=== PATIENT | male | born 1995 | race Caucasian/White ===

== ENCOUNTER 2020-10-19 16:36 | Emergency (ER) | payer SELFPAY ==
[~2020-10-19] VITALS: Ht 188 cm; Wt 95.4 kg
[~2020-10-19 16:36] MED LIST: LEVE500T53 PO
--- NOTE | 2020-10-19 16:49 | NUR ---
PT AMBULATED TO ROOM FROM TRIAGE. PT STATED THAT LAST WEEK HE FELT PAIN IN THE BACK OF HIS MOUTH ON THE RIGHT SIDE. PT HAD GIRLFRIEND TAKE A PICTURE AND NOTICED A SORE. PT STATED THAT PAIN HAS NOT GONE AWAY. PT DENIES ANY FEVER, N/V/D OR ANY OTHER SYMPTOMS.
--- NOTE | 2020-10-19 17:35 | NUR ---
PT RESTING COMFORTABLY IN [facility]. CALL LIGHT WITHIN REACH.
[2020-10-19 17:59] LABS: ANION GAP 7 mmol/L (5-15); CALCIUM 8.7 mg/dL (8.5-10.1); CHLORIDE 110 mmol/L (98-107); CREATININE 0.84 mg/dL (0.7-1.3)
[2020-10-19] MEDS ORDERED: KETOROLAC 30 MG/1 ML IM ONE (18:00)
[2020-10-19 18:02] LABS: BASOPHILS % (AUTO) 1 % (0-1); EOSINOPHILS % (AUTO) 2 % (1-7); LYMPHOCYTES % (AUTO) 22 % (22-44); MEAN CORPUSCULAR HEMOGLOBIN 29.8 pg (27.5-34.5); MEAN CORPUSCULAR HGB CONC 33.7 g/dL (33.2-36.2); MEAN PLATELET VOLUME 7.8 fL (7.4-10.4); MONOCYTES % (AUTO) 10 % (2-9); NEUTROPHILS % (AUTO) 66 % (42-75); PLATELET COUNT 328 x10^3/uL (130-400); RED BLOOD COUNT 4.78 x10^6/uL (4.38-5.82); RED CELL DISTRIBUTION WIDTH 13.3 % (9.4-14.8)
[2020-10-19] MEDS ORDERED: KETOROLAC 30 MG/1 ML ONE (18:03)
[2020-10-19 18:08] LABS: MD NO
--- NOTE | 2020-10-19 18:38 | NUR ---
PT TO CT
[2020-10-19] MEDS ORDERED: OMNIPAQUE 350 MG/ML, 100ML BOTTLE ONE (18:52)
--- NOTE | 2020-10-19 19:00 | NUR ---
PT BACK FROM CT
[2020-10-19] MEDS ORDERED: ONDANSETRON ODT 4 MG ONE ×3 (20:02→20:45)
--- NOTE | 2020-10-19 20:13 | NUR ---
DISCHARGE INSTRUCTIONS REVIEWED WITH PT. ALL QUESTIONS ANSWERED AT THIS TIME
[2020-10-19] MEDS ORDERED: ONDANSETRON ODT 4 MG PO ONE ×2 (20:30→21:00)
--- NOTE | 2020-10-19 20:30 | NUR ---
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 PT BACK TO ORIGINAL ROOM. ERP & PRIMARY RN AWARE
[2020-10-19] MEDS ORDERED: DIPHENHYDRAMINE 50 MG CAPSULE ONE (20:42)
[2020-10-19] MEDS ORDERED: DIPHENHYDRAMINE 25 MG CAPSULE PO ONE (21:00)
--- NOTE | 2020-10-19 21:11 | NUR ---
bedside report from liza chin
[2020-10-19] MEDS ORDERED: PROMETHAZINE 25 MG/ML, 1ML ONE (21:18)
[2020-10-19 21:26] VITALS: BP 119/73
--- NOTE | 2020-10-19 21:27 | NUR ---
pt still with complaints of n/v. pt medicated with phenergan per emar
[2020-10-19] MEDS ORDERED: PROMETHAZINE 25 MG/ML, 1ML IM ONE (21:30)
--- NOTE | 2020-10-19 21:52 | NUR ---
pt reports n/v has resolved. pt ambulatory to the discharge desk with a steady gait. pt provided discharge paperwork and taxi voucher home.
== END 2020-10-19 20:15 | disposition home or self-care (01) ==
LOC: ED 19:50
DX: K12.0 Recurrent oral aphthae (principal); J02.9 Acute pharyngitis, unspecified; R11.2 Nausea with vomiting, unspecified; F17.210 Nicotine dependence, cigarettes, uncomplicated
CPT/HCPCS: 36415; 70491; 80048; 85025; 87081; 87880; 96372; 99285; J1885; J2550; Q0162; Q0163; Q9967

== ENCOUNTER 2021-02-09 10:57 | Observation (INO) | payer MEDICAID ==
[~2021-02-09] VITALS: Ht 188 cm; Wt 98.9 kg
--- NOTE | 2021-02-09 11:38 | NUR ---
ERMD AT BEDSIDE FOR EVALUATION.
[2021-02-09] MEDS ORDERED: FAMOTIDINE 20 MG/2 ML ONE (11:40)
[2021-02-09] MEDS ORDERED: DEXAMETHASONE 4 MG/ML, 1ML ONE (11:40)
[2021-02-09] MEDS ORDERED: DIPHENHYDRAMINE 50 MG/ML, 1ML ONE (11:41)
[2021-02-09] MEDS ORDERED: SODIUM CHLORIDE FLUSH 10ML SYR IVF ONE (12:00)
[2021-02-09] MEDS ORDERED: FAMOTIDINE 20 MG/2 ML IVPush ONE (12:00)
[2021-02-09] MEDS ORDERED: DIPHENHYDRAMINE 50 MG/ML, 1ML IVPush ONE (12:00)
[2021-02-09] MEDS ORDERED: DEXAMETHASONE 4 MG/ML, 1ML IVPush ONE (12:00)
[2021-02-09] MEDS ORDERED: AMPICILLIN/SULBACTAM 3 GM in SODIUM CHLORIDE 0.9% 100 ML IV ONE (12:00)
--- NOTE | 2021-02-09 12:01 | NUR ---
Break RN note: Pt resting in bed, resp even and unlabored, NADN, denies needs. Pt to CT via gur[facility] at this time.
[2021-02-09] MEDS ORDERED: OMNIPAQUE 350 MG/ML, 100ML BOTTLE ONE (12:13)
[2021-02-09 12:36] LABS: BASOPHILS % (AUTO) 0 % (0-1); EOSINOPHILS % (AUTO) 0 % (1-7); LYMPHOCYTES % (AUTO) 12 % (22-44); MEAN CORPUSCULAR HEMOGLOBIN 29.9 pg (27.5-34.5); MEAN CORPUSCULAR HGB CONC 33.9 g/dL (33.2-36.2); MONOCYTES % (AUTO) 13 % (2-9); NEUTROPHILS % (AUTO) 74 % (42-75); PLATELET COUNT 263 x10^3/uL (130-400); RED BLOOD COUNT 5.31 x10^6/uL (4.38-5.82); RED CELL DISTRIBUTION WIDTH 13.3 % (9.4-14.8)
[2021-02-09 12:46] LABS: ALANINE AMINOTRANSFERASE 23 U/L (12-78); ALBUMIN 3.6 g/dL (3.4-5.0); ANION GAP 7 mmol/L (5-15); CALCIUM 8.9 mg/dL (8.5-10.1); CHLORIDE 103 mmol/L (98-107)
[2021-02-09 12:48] LABS: ALKALINE PHOSPHATASE 70 U/L (45-117); BILIRUBIN,TOTAL 1.2 mg/dL (0.2-1.0)
--- NOTE | 2021-02-09 13:03 | NUR ---
PATIENT SITTING IN GURNEY, TALKING TO FRIEND ON PHONE, NADN, CONNECTED TO MONITOR, VSS, CALL LIGHT WITHIN REACH. ERMD TALKING TO ENT ON PHONE.
--- NOTE | 2021-02-09 14:06 | NUR ---
THALIA, [facility] AT BEDSIDE FOR ADMISSION EVALUATION.
--- NOTE | 2021-02-09 14:15 | NUR ---
ATTEMPTED TO CALL REPORT.
--- NOTE | 2021-02-09 14:25 | NUR ---
REPORT CALLED TO [facility] G[facility] FOR TRANSFER OF PATIENT CARE.
[2021-02-09] MEDS ORDERED: KETOROLAC 30 MG/1 ML ONE (14:28)
[2021-02-09] MEDS ORDERED: DIPHENHYDRAMINE 50 MG/ML, 1ML IVPush PRN (14:30)
[2021-02-09] MEDS ORDERED: KETOROLAC 30 MG/1 ML IVPush ONE (14:30)
[2021-02-09] MEDS ORDERED: BISACODYL 10 MG SUPP PR PRN (15:00)
[2021-02-09] MEDS ORDERED: KETOROLAC 30 MG/1 ML IV PRN (15:00)
[2021-02-09] MEDS ORDERED: MELATONIN 5 MG TABLET PO PRN (15:00)
--- NOTE | 2021-02-09 15:01 | NUR ---
PATIENT TRANSFERRED IN STABLE CONDITION TO [facility] WITH OFFICE SUPPORT ASSOCIATE. ALL PATIENT BELONGINGS TAKEN TO FLOOR WITH PATIENT.
[2021-02-09 15:19] VITALS: BP 122/84
[2021-02-09 19:04] VITALS: BP 105/80
[2021-02-09] MEDS: AMPICILLIN/SULBACTAM 3 GM in SODIUM CHLORIDE 0.9% 100 ML IV SCH (19:45)
[2021-02-10 00:43] VITALS: BP 110/61
[2021-02-10] MEDS: AMPICILLIN/SULBACTAM 3 GM in SODIUM CHLORIDE 0.9% 100 ML IV SCH ×2 (02:10→08:06)
[2021-02-10 04:56] LABS: BASOPHILS % (AUTO) 0 % (0-1); EOSINOPHILS % (AUTO) 0 % (1-7); LYMPHOCYTES % (AUTO) 9 % (22-44); MEAN CORPUSCULAR HEMOGLOBIN 29.6 pg (27.5-34.5); MEAN CORPUSCULAR HGB CONC 33.5 g/dL (33.2-36.2); MEAN PLATELET VOLUME 7.7 fL (7.4-10.4); MONOCYTES % (AUTO) 7 % (2-9); NEUTROPHILS % (AUTO) 84 % (42-75); PLATELET COUNT 298 x10^3/uL (130-400); RED BLOOD COUNT 5.38 x10^6/uL (4.38-5.82); RED CELL DISTRIBUTION WIDTH 13.2 % (9.4-14.8)
[2021-02-10 05:12] LABS: ANION GAP 6 mmol/L (5-15); CALCIUM 9.5 mg/dL (8.5-10.1); CHLORIDE 105 mmol/L (98-107)
[2021-02-10 05:13] LABS: CREATININE 0.71 mg/dL (0.7-1.3)
[2021-02-10 06:07] LABS: AMPHETAMINE SCREEN, URINE Positive (Negative); BARBITURATE SCREEN, URINE Negative (Negative); BENZODIAZEPINE SCREEN, URINE Negative (Negative); CANNABINOID SCREEN, URINE Negative (Negative); COCAINE SCREEN, URINE Negative (Negative); METHADONE SCREEN, URINE Negative (Negative); OPIATE SCREEN, URINE Negative (Negative)
[2021-02-10] MEDS ORDERED: DEXAMETHASONE 4 MG/ML, 1ML IVPush SCH (09:00)
[2021-02-10] MEDS ORDERED: METH4TAB6 PO (09:02)
[2021-02-10] MEDS ORDERED: AMOX1TAB64 PO (09:02)
[2021-02-10 09:25] VITALS: BP 114/76
== END 2021-02-10 11:34 | disposition home or self-care (01) ==
LOC: ED 13:30 → 4EST 15:23 → INTOOBSV 15:23
PROVIDERS: ADMIT Family Medicine; ATTEND Family Medicine
DX: J02.9 Acute pharyngitis, unspecified (principal); T78.3XXA Angioneurotic edema, initial encounter; R65.10 Systemic inflammatory response syndrome (SIRS) of non-infectious origin without acute organ dysfunction; R00.0 Tachycardia, unspecified; R59.9 Enlarged lymph nodes, unspecified; D72.829 Elevated white blood cell count, unspecified; G40.909 Epilepsy, unspecified, not intractable, without status epilepticus; F17.200 Nicotine dependence, unspecified, uncomplicated; F15.10 Other stimulant abuse, uncomplicated; Z91.018 Allergy to other foods; Z79.899 Other long term (current) drug therapy
CPT/HCPCS: 36415; 70491; 80048; 80053; 80307; 83605; 85025; 87040; 87081; 87147; 87880; 93005; 96365; 96366; 96375; 96376; 99285; G0378; J0295; J1100; J1200; J1885; Q9967; 96374